=== PATIENT | female | born 1980 | race Caucasian/White ===

== ENCOUNTER 2016-07-24 20:21 | Observation (INO) ==
[2016-07-24 22:25] LABS: Basophils # 0.1 K/mcL (0.0-0.2); Basophils % 0.4 %; Hematocrit 44.1 % (35.3-44.9); Hemoglobin 14.8 g/dL (11.5-15.4); Immature Granulocytes % 0.4 % (0-4); Lymphocytes # 1.7 K/mcL (0.6-4.6); Lymphocytes % 8.3 %; Mean Corpuscular HGB Conc 33.6 g/dL (31.6-35.5); Mean Corpuscular Hemoglobin 29.9 pg (28.0-33.3); Mean Corpuscular Volume 89.1 fL (83.0-100.0); Mean Platelet Volume 9.7 fL (9.4-12.4); Neutrophils # 17.2 K/mcL (1.6-8.9); Platelet Count 317 K/mcL (140-400); Red Blood Count 4.95 M/mcL (3.82-4.97); Red Cell Distribution Width 13.5 % (11.5-14.5); Segmented Neutrophils % 85.9 %
[2016-07-24 22:37] LABS: Alanine Aminotransferase 17 Units/L (0-55); Albumin 3.9 g/dL (3.5-5.0); Albumin/Globulin Ratio 1.1 (1.1-2.2); Alkaline Phosphatase 137 Units/L (38-126); Amylase 36 Units/L (25-125); Aspartate Amino Transferase 18 Units/L (5-34); BUN/Creatinine Ratio 8 (6-26); Bilirubin,Direct 0.2 mg/dL (0.0-0.5); Bilirubin,Indirect 0.4 mg/dL (0.0-1.2); Bilirubin,Total 0.6 mg/dL (0.2-1.2); Blood Urea Nitrogen 5 mg/dL (7-20); Calcium 9.8 mg/dL (8.6-10.8); Carbon Dioxide 26 mEq/L (19-29); Chloride 102 mEq/L (98-109); Globulin 3.7 g/dL (2.4-3.5); Glucose 117 mg/dL (70-99); Lipase 14 Units/L (8-78); Osmolality,Calculated 282 (280-300); Potassium 4.1 mEq/L (3.5-4.5); Sodium 137 mEq/L (136-145); Total Protein 7.6 g/dL (6.0-8.3); eGFR For African Americans > 60 (> 60); eGFR For Non-African Americans > 60 (> 60)
[2016-07-24 23:14] LABS: Bilirubin,Urine Negative (Negative); Blood,Urine Negative (Negative); Clarity,Urine Cloudy (Clear); Color,Urine Yellow (Yellow); Glucose,Urine (UA) Normal (Normal); Ketones,Urine Negative (Negative); Leukocyte Esterase,Urine Negative (Negative); Nitrite,Urine Negative (Negative); PH,Urine 7.5 pH Units (5.0-8.0); Protein,Urine Negative (Neg-Trace); Urobilinogen,Urine Normal (Normal)
[2016-07-24 23:16] LABS: Bacteria,Urine Moderate per hpf (None-Few); Hyaline Casts,Urine None Seen per lpf (None-Few); Squamous Epithelial Cell,Urine Many per lpf (None-Few); WBC,Urine 0-3 per hpf (0-3)
[2016-07-24] MEDS ORDERED: 0.9 % Sodium Chloride 1,000 ML IVC ONE (23:22)
[2016-07-24] MEDS ORDERED: Ondansetron 4 MG/2 ML VIAL IVP ONE (23:31)
[2016-07-24] MEDS ORDERED: *HR* HYDROmorphone (PF) 1 MG/ML SYRINGE IVP ONE (23:32)
--- NOTE | 2016-07-24 23:35 | Emergency Department Note ---
Disposition Clinical Impression: Appendicitis Qualifiers: Appendicitis type: acute appendicitis Acute appendicitis type: unspecified acute appendicitis type Qualified Code(s): K35.80 - Unspecified acute appendicitis Disposition: Admitted As Inpatient Condition: Good Time of Disposition: 01:13 Abdominal Pain HPI - General Chief Complaint: ED Abdominal Pain Stated Complaint: lower right abdominal pain, fever nausea Time Seen by Provider: 07/24/16 23:13 Source: patient Nursing Notes Reviewed: Yes Vital Signs Reviewed: Yes - History of Present Illness Pt Subjective Complaint: abdominal pain Onset (ago): hour(s) Consistency: Worsening Location: periumbilical Pain Scale: 8 Quality: aching Radiation: none Migration to: RLQ Improves with: nothing Worsens with: movement Associated symptoms: Reports: nausea, vomiting, chills Treatments prior to arrival: none - Related Data Home Medications Medication Instructions Recorded Confirmed Alprazolam [Xanax 0.5 MG Tablet] 0.5 mg PO TID PRN 07/25/16 07/25/16 Buspirone HCl [Buspar] 10 mg PO TID PRN 07/25/16 07/25/16 Cyclobenzaprine [Flexeril] 10 mg PO BID PRN 07/25/16 07/25/16 Lisinopril-HCTZ 10-12.5 [Prinzide 1 each PO DAILY 07/25/16 07/25/16 10-12.5] Tramadol HCl [Ultram] 50 mg PO BID PRN 07/25/16 07/25/16 Allergies Allergy/AdvReac Type Severity Reaction Status Date / Time desvenlafaxine [From Pristiq] AdvReac Hives Verified 07/25/16 00:23 ibuprofen AdvReac Hives Verified 07/25/16 00:22 ketorolac [From Toradol] AdvReac Hives Verified 07/25/16 00:23 All systems ED: reviewed and negative except as stated. Constitutional: Denies: chills Cardiovascular: Denies: chest pain, palpitations, dyspnea on exertion Respiratory: Denies: dyspnea Gastrointestinal: Reports: as per HPI Genitourinary: Denies: dysuria, abnormal menses Musculoskeletal: Denies: back pain Integumentary: Denies: rash Neurological: Denies: headache Hematological/Lymphatic: Denies: easy bleeding Abdominal Pain PMH - Past Medical History Medical history: Reports: no medical history Female Surgical History: Reports: cholecystectomy, hysterectomy, orthopedic, other Psychiatric history: Reports: no psych history - Social History Smoking status: Current every day smoker Alcohol use: Reports: none Drug use: Reports: none Physical Exam - General Limitations: no limitations General appearance: alert, in no apparent distress - Head Head exam: normocephalic - Eye Eye exam: Present: EOMI. Absent: conjunctival injection - ENT ENT exam: mucous membranes moist - Neck Neck exam: Present: normal inspection, full ROM - Chest Chest inspection: Present: symmetric chest wall rise - Respiratory Respiratory exam: Present: normal lung sounds bilaterally. Absent: respiratory distress - Cardiovascular Cardiovascular exam: Present: regular rate, tachycardia - Abdominal Exam Abdominal exam: Present: soft, tenderness, guarding, obturator sign, tenderness at McBurney's Point Abdominal tenderness: Present: RLQ - Extremities Exam Extremities exam: Present: normal inspection, full ROM - Back Exam Back exam: Present: full ROM - Neurological Exam Neurological exam: Present: alert, oriented X3 - Psychiatric Psychiatric exam: Present: normal affect, normal mood - Skin Skin exam: Present: warm, dry, intact, normal color. Absent: rash, cyanosis, diaphoresis Course Course Narrative: Patient is a 36-year-old female Presents with abdominal pain that started acutely while she was at work approximately 10 hours ago. She states it started around her periumbilical region, then radiated to her right lower quadrant area and she has felt chills. Pain score is with movement. Patient seen and examined. She does have some focal tenderness over right lower quadrant, obturator test positive. Lab work was ordered upon her arrival to the exam room, she does have an elevated white blood cell count, patient is tachycardic. Analgesics and antiemetics and fluids ordered. Considering appendicitis. Discussed patient with Dr. RODRIGEZ, who agreed with CT scan - Reevaluation(s) Reevaluation #1: Results of CT scan show evidence for appendicitis. At this time patient's vitals are stable. Her pain is controlled. She is resting in bed. Discussed patient with Dr. Rodrigez, who also had FaceTime the patient, and agreed for admission and surgery consult. Time: 01:09 - Consultations Consultation #1: Surgery was paged, and discussed patient and results of CT scan with Dr. Banda, who advised to admit patient to his service, for surgery in the morning. Time: 01:14 Vital Signs Temperature 98.3 F 07/24/16 20:35 Pulse Rate 142 07/24/16 20:35 Respiratory Rate 14 07/24/16 20:35 Blood Pressure 142/93 07/24/16 20:35 O2 Sat by Pulse Oximetry 99 07/24/16 20:35 Temperature 97.8 F 07/25/16 02:20 Pulse Rate 103 07/25/16 02:20 Respiratory Rate 16 07/25/16 02:20 Blood Pressure 123/86 07/25/16 02:20 O2 Sat by Pulse Oximetry 95 07/25/16 02:20 Oxygen Delivery Oxygen Delivery Room Air Abdominal Pain - MDM Narrative Medical decision making narrative: Abdomen/Pelvis CT 07/25/16 00:02 IMPRESSION: Acute non perforated appendicitis. Appendix is dilated to 1.0 cm. There is appendiceal wall thickening. There is periappendiceal inflammatory change D/ / Gelacio Quintanilla MD / Gelacio Quintanilla MD Interpreting Provider: Gelacio Quintanilla MD All Lab Results (24 Hours) 07/24/16 07/24/16 07/24/16 Range/Units 22:09 22:09 23:00 WBC 20.0 H (4.3-11.1) K/mcL RBC 4.95 (3.82-4.97) M/mcL Hgb 14.8 (11.5-15.4) g/dL Hct 44.1 (35.3-44.9) % MCV 89.1 (83.0-100.0) fL MCH 29.9 (28.0-33.3) pg MCHC 33.6 (31.6-35.5) g/dL RDW 13.5 (11.5-14.5) % Plt Count 317 (140-400) K/mcL MPV 9.7 (9.4-12.4) fL Immature Gran % 0.4 (0-4) % Seg Neutrophils % 85.9 % Lymphocytes % 8.3 % Monocytes % 5.0 % Eosinophils % 0.0 % Basophils % 0.4 % Neutrophils # 17.2 H (1.6-8.9) K/mcL Lymphocytes # 1.7 (0.6-4.6) K/mcL Monocytes # 1.0 (0.0-1.3) K/mcL Eosinophils # 0.0 (0.0-0.6) K/mcL Basophils # 0.1 (0.0-0.2) K/mcL Sodium 137 (136-145) mEq/L Potassium 4.1 (3.5-4.5) mEq/L Chloride 102 (98-109) mEq/L Carbon Dioxide 26 (19-29) mEq/L BUN 5 L (7-20) mg/dL Creatinine 0.66 (0.57-1.11) mg/dL Est GFR ( Amer) > 60 (> 60) Est GFR (Non-Af Amer) > 60 (> 60) BUN/Creatinine Ratio 8 (6-26) Glucose 117 H (70-99) mg/dL Calculated Osmolality 282 (280-300) Lactic Acid (0.5-2.2) mmol/L Calcium 9.8 (8.6-10.8) mg/dL Total Bilirubin 0.6 (0.2-1.2) mg/dL Direct Bilirubin 0.2 (0.0-0.5) mg/dL Indirect Bilirubin 0.4 (0.0-1.2) mg/dL AST 18 (5-34) Units/L ALT 17 (0-55) Units/L Alkaline Phosphatase 137 H (38-126) Units/L Serum Total Protein 7.6 (6.0-8.3) g/dL Albumin 3.9 (3.5-5.0) g/dL Globulin 3.7 H (2.4-3.5) g/dL Albumin/Globulin Ratio 1.1 (1.1-2.2) Amylase 36 (25-125) Units/L Lipase 14 (8-78) Units/L Urine Color (Yellow) Urine Clarity (Clear) Urine pH (5.0-8.0) pH Units Ur Specific [place] (1.010-1.025) Urine Protein (Neg-Trace) mg/dL Urine Glucose (UA) (Normal) mg/dL Urine Ketones (Negative) mg/dL Urine Blood (Negative) Urine Nitrite (Negative) Urine Bilirubin (Negative) Urine Urobilinogen (Normal) mg/dL Ur Leukocyte Esterase (Negative) Urine Microscopic RBC (0-3) per hpf Urine Microscopic WBC (0-3) per hpf Ur Squamous Epith Cells (None-Few) per lpf Urine Bacteria (None-Few) per hpf Hyaline Casts (None-Few) per lpf Ur Culture Indicated? (NO) Urine Test Negative (Negative) 07/24/16 07/25/16 Range/Units 23:00 00:21 WBC (4.3-11.1) K/mcL RBC (3.82-4.97) M/mcL Hgb (11.5-15.4) g/dL Hct (35.3-44.9) % MCV (83.0-100.0) fL MCH (28.0-33.3) pg MCHC (31.6-35.5) g/dL RDW (11.5-14.5) % Plt Count (140-400) K/mcL MPV (9.4-12.4) fL Immature Gran % (0-4) % Seg Neutrophils % % Lymphocytes % % Monocytes % % Eosinophils % % Basophils % % Neutrophils # (1.6-8.9) K/mcL Lymphocytes # (0.6-4.6) K/mcL Monocytes # (0.0-1.3) K/mcL Eosinophils # (0.0-0.6) K/mcL Basophils # (0.0-0.2) K/mcL Sodium (136-145) mEq/L Potassium (3.5-4.5) mEq/L Chloride (98-109) mEq/L Carbon Dioxide (19-29) mEq/L BUN (7-20) mg/dL Creatinine (0.57-1.11) mg/dL Est GFR ( Amer) (> 60) Est GFR (Non-Af Amer) (> 60) BUN/Creatinine Ratio (6-26) Glucose (70-99) mg/dL Calculated Osmolality (280-300) Lactic Acid 1.0 (0.5-2.2) mmol/L Calcium (8.6-10.8) mg/dL Total Bilirubin (0.2-1.2) mg/dL Direct Bilirubin (0.0-0.5) mg/dL Indirect Bilirubin (0.0-1.2) mg/dL AST (5-34) Units/L ALT (0-55) Units/L Alkaline Phosphatase (38-126) Units/L Serum Total Protein (6.0-8.3) g/dL Albumin (3.5-5.0) g/dL Globulin (2.4-3.5) g/dL Albumin/Globulin Ratio (1.1-2.2) Amylase (25-125) Units/L Lipase (8-78) Units/L Urine Color Yellow (Yellow) Urine Clarity Cloudy A (Clear) Urine pH 7.5 (5.0-8.0) pH Units Ur Specific [place] 1.020 (1.010-1.025) Urine Protein Negative (Neg-Trace) mg/dL Urine Glucose (UA) Normal (Normal) mg/dL Urine Ketones Negative (Negative) mg/dL Urine Blood Negative (Negative) Urine Nitrite Negative (Negative) Urine Bilirubin Negative (Negative) Urine Urobilinogen Normal (Normal) mg/dL Ur Leukocyte Esterase Negative (Negative) Urine Microscopic RBC 5-15 H (0-3) per hpf Urine Microscopic WBC 0-3 (0-3) per hpf Ur Squamous Epith Cells Many H (None-Few) per lpf Urine Bacteria Moderate H (None-Few) per hpf Hyaline Casts None Seen (None-Few) per lpf Ur Culture Indicated? NO (NO) Urine Test (Negative) - Lab Data Lab results reviewed: Yes I reviewed the patient's lab results. Result diagrams: 07/24/16 22:09 07/24/16 22:09 Lab Results 07/24/16 07/24/16 07/24/16 Range/Units 22:09 22:09 23:00 WBC 20.0 H (4.3-11.1) K/mcL RBC 4.95 (3.82-4.97) M/mcL Hgb 14.8 (11.5-15.4) g/dL Hct 44.1 (35.3-44.9) % MCV 89.1 (83.0-100.0) fL MCH 29.9 (28.0-33.3) pg MCHC 33.6 (31.6-35.5) g/dL RDW 13.5 (11.5-14.5) % Plt Count 317 (140-400) K/mcL MPV 9.7 (9.4-12.4) fL Immature Gran % 0.4 (0-4) % Seg Neutrophils % 85.9 % Lymphocytes % 8.3 % Monocytes % 5.0 % Eosinophils % 0.0 % Basophils % 0.4 % Neutrophils # 17.2 H (1.6-8.9) K/mcL Lymphocytes # 1.7 (0.6-4.6) K/mcL Monocytes # 1.0 (0.0-1.3) K/mcL Eosinophils # 0.0 (0.0-0.6) K/mcL Basophils # 0.1 (0.0-0.2) K/mcL Sodium 137 (136-145) mEq/L Potassium 4.1 (3.5-4.5) mEq/L Chloride 102 (98-109) mEq/L Carbon Dioxide 26 (19-29) mEq/L BUN 5 L (7-20) mg/dL Creatinine 0.66 (0.57-1.11) mg/dL Est GFR ( Amer) > 60 (> 60) Est GFR (Non-Af Amer) > 60 (> 60) BUN/Creatinine Ratio 8 (6-26) Glucose 117 H (70-99) mg/dL Calculated Osmolality 282 (280-300) Lactic Acid (0.5-2.2) mmol/L Calcium 9.8 (8.6-10.8) mg/dL Total Bilirubin 0.6 (0.2-1.2) mg/dL Direct Bilirubin 0.2 (0.0-0.5) mg/dL Indirect Bilirubin 0.4 (0.0-1.2) mg/dL AST 18 (5-34) Units/L ALT 17 (0-55) Units/L Alkaline Phosphatase 137 H (38-126) Units/L Serum Total Protein 7.6 (6.0-8.3) g/dL Albumin 3.9 (3.5-5.0) g/dL Globulin 3.7 H (2.4-3.5) g/dL Albumin/Globulin Ratio 1.1 (1.1-2.2) Amylase 36 (25-125) Units/L Lipase 14 (8-78) Units/L Urine Color (Yellow) Urine Clarity (Clear) Urine pH (5.0-8.0) pH Units Ur Specific [place] (1.010-1.025) Urine Protein (Neg-Trace) mg/dL Urine Glucose (UA) (Normal) mg/dL Urine Ketones (Negative) mg/dL Urine Blood (Negative) Urine Nitrite (Negative) Urine Bilirubin (Negative) Urine Urobilinogen (Normal) mg/dL Ur Leukocyte Esterase (Negative) Urine Microscopic RBC (0-3) per hpf Urine Microscopic WBC (0-3) per hpf Ur Squamous Epith Cells (None-Few) per lpf Urine Bacteria (None-Few) per hpf Hyaline Casts (None-Few) per lpf Ur Culture Indicated? (NO) Urine Test Negative (Negative) 07/24/16 07/25/16 Range/Units 23:00 00:21 WBC (4.3-11.1) K/mcL RBC (3.82-4.97) M/mcL Hgb (11.5-15.4) g/dL Hct (35.3-44.9) % MCV (83.0-100.0) fL MCH (28.0-33.3) pg MCHC (31.6-35.5) g/dL RDW (11.5-14.5) % Plt Count (140-400) K/mcL MPV (9.4-12.4) fL Immature Gran % (0-4) % Seg Neutrophils % % Lymphocytes % % Monocytes % % Eosinophils % % Basophils % % Neutrophils # (1.6-8.9) K/mcL Lymphocytes # (0.6-4.6) K/mcL Monocytes # (0.0-1.3) K/mcL Eosinophils # (0.0-0.6) K/mcL Basophils # (0.0-0.2) K/mcL Sodium (136-145) mEq/L Potassium (3.5-4.5) mEq/L Chloride (98-109) mEq/L Carbon Dioxide (19-29) mEq/L BUN (7-20) mg/dL Creatinine (0.57-1.11) mg/dL Est GFR ( Amer) (> 60) Est GFR (Non-Af Amer) (> 60) BUN/Creatinine Ratio (6-26) Glucose (70-99) mg/dL Calculated Osmolality (280-300) Lactic Acid 1.0 (0.5-2.2) mmol/L Calcium (8.6-10.8) mg/dL Total Bilirubin (0.2-1.2) mg/dL Direct Bilirubin (0.0-0.5) mg/dL Indirect Bilirubin (0.0-1.2) mg/dL AST (5-34) Units/L ALT (0-55) Units/L Alkaline Phosphatase (38-126) Units/L Serum Total Protein (6.0-8.3) g/dL Albumin (3.5-5.0) g/dL Globulin (2.4-3.5) g/dL Albumin/Globulin Ratio (1.1-2.2) Amylase (25-125) Units/L Lipase (8-78) Units/L Urine Color Yellow (Yellow) Urine Clarity Cloudy A (Clear) Urine pH 7.5 (5.0-8.0) pH Units Ur Specific [place] 1.020 (1.010-1.025) Urine Protein Negative (Neg-Trace) mg/dL Urine Glucose (UA) Normal (Normal) mg/dL Urine Ketones Negative (Negative) mg/dL Urine Blood Negative (Negative) Urine Nitrite Negative (Negative) Urine Bilirubin Negative (Negative) Urine Urobilinogen Normal (Normal) mg/dL Ur Leukocyte Esterase Negative (Negative) Urine Microscopic RBC 5-15 H (0-3) per hpf Urine Microscopic WBC 0-3 (0-3) per hpf Ur Squamous Epith Cells Many H (None-Few) per lpf Urine Bacteria Moderate H (None-Few) per hpf Hyaline Casts None Seen (None-Few) per lpf Ur Culture Indicated? NO (NO) Urine Test (Negative) - Radiology Data Radiology results reviewed: Yes I reviewed the patient's radiology results. Attestation Statement - Attestation Attestation: I performed a history and physical examination of the patient and discussed their management with the PA. I reviewed the residents note and agree with the documented findings and plan of care. This is a 36-year-old female who presented with pain in the right lower quadrant area. Her CT scan did suggest evidence of appendicitis. Tenderness did localize. Case discussed with general surgery to arrange for admission.
[2016-07-25] MEDS ORDERED: 0.9 % Sodium Chloride 1,000 ML IVC ONE ×2 (01:16→13:54)
[2016-07-25] MEDS ORDERED: *HR* HYDROmorphone (PF) 1 MG/ML SYRINGE IVP ONE (01:29)
[2016-07-25] MEDS ORDERED: Ondansetron 4 MG/2 ML VIAL IVP ONE ×2 (01:29→12:51)
[2016-07-25] MEDS ORDERED: cefOXitin 2,000 MG in D5% in Water (Mini-Bag+) 100 ML IVPB ONE (02:28)
[2016-07-25] MEDS ORDERED: Ondansetron 4 MG/2 ML VIAL IVP PRN ×3 (02:29→13:54)
[2016-07-25] MEDS ORDERED: 0.9 % Sodium Chloride 1,000 ML IVC SCH ×2 (02:30→13:54)
[2016-07-25] MEDS: *HR* HYDROmorphone (PF) 1 MG/ML SYRINGE IVP PRN ×2 (03:30→07:07)
--- NOTE | 2016-07-25 10:25 | Anesthesia Evaluation PreOp ---
Date of Encounter: 07/25/16 Time of Encounter: 10:37 - Past History Planned Operation: Lap appendectomy Cardiac History: Denies any Significant Hx Pulmonary History: Smoker, Pack/yr (1ppd x years) MEDICAL DOCTOR MD History: Denies Any Significant HX Other Medical History: Denies Any Significant HX Anesthesia History: No Prior Anesthetic Complications, Past Anesthesia (MIGUEL, tanner, ortho) Alcohol Use: none Drug use: none Medications and Allergies Alprazolam [Xanax 0.5 MG Tablet] 0.5 mg PO QID PRN 07/25/16 [History] Beclomethasone Diprop 40mcg [Qvar 40 mcg] 1 puff IH BID 07/25/16 [History] Buspirone HCl [Buspar] 10 mg PO TID PRN 07/25/16 [History] Cyclobenzaprine [Flexeril] 10 mg PO TID PRN 07/25/16 [History] Lisinopril-HCTZ 10-12.5 [Prinzide 10-12.5] 1 tab PO DAILY 07/25/16 [History] Montelukast [Singulair] 10 mg PO HS 07/25/16 [History] Tramadol HCl [Ultram] 50 mg PO Q6H PRN 07/25/16 [History] Allergies desvenlafaxine [From Pristiq] Adverse Reaction (Verified 07/25/16 00:23) Hives ibuprofen Adverse Reaction (Verified 07/25/16 00:22) Hives ketorolac [From Toradol] Adverse Reaction (Verified 07/25/16 00:23) Hives - Meds/Allergy Pre-op Review Medications Reviewed: Yes Allergies Reviewed: Yes Beta Blockers on Current Med List: No Anesthesia Results - Labs 07/24/16 22:09 07/24/16 22:09 - Imaging Additional studies: CT abdomen shows acute appendicitis Anesthesia Exam Selected Entries 07/25/16 07:57 Temperature 98.2 F Pulse Rate 109 Respiratory Rate 20 Blood Pressure 106/73 O2 Sat by Pulse Oximetry 97 Weight: 86kg NPO (# of Hours): >8 - HEENT Pupil (Motor): EOMI Mallampati: III Teeth: Edentulous (has on front upper tooth only) Oral Opening: Less than or equal to 3 - MEDICAL DOCTOR MD LOC: Oriented MEDICAL DOCTOR MD Motor: Normal RUE, Normal LUE, Normal RLE, Normal LLE, Normal Face MEDICAL DOCTOR MD Sensory: Normal: RUE, LUE, RLE, LLE, Face - Cardiac Rhythm: Regular (tachy) Murmur: None - Pulmonary Breath Sounds: bilateral Clear Respiratory Effort: Symmetrical Anesthesia Assess/Plan ASA Score: 2 Modified [place] Scale for Level of Consciousness: Cooperative, oriented, and tranquil Anesthetic Plan: General Monitoring Plan: Standard Monitors Recovery Plan: PACU (Discussed risks of GA, questions answered and agrees to proceed.)
[2016-07-25] MEDS ORDERED: *HR* Propofol 200 MG/20 ML VIAL IVP ONE (10:37)
[2016-07-25] MEDS ORDERED: *HR* Midazolam HCl 2 MG/2 ML VIAL ONE (10:37)
[2016-07-25] MEDS ORDERED: *HR* FentaNYL (PF) 100 MCG/2 ML VIAL ONE (10:37)
[2016-07-25] MEDS ORDERED: Lidocaine -MPF 2% 2 ML VIAL ONE (10:39)
[2016-07-25] MEDS ORDERED: Lidocaine -MPF 4% 5 ML AMPUL ONE (10:41)
[2016-07-25] MEDS ORDERED: *HR* HYDROmorphone (PF) 1 MG/ML SYRINGE IVP PRN ×3 (10:47→13:54)
--- NOTE | 2016-07-25 11:38 | General Surg History&Physical ---
Date of Encounter: 07/25/16 Time of Encounter: 11:36 Assessment and Plan (1) Appendicitis Current Visit: Yes Status: Acute The assessment and plan as outlined above was discussed with the patient and/or family members who expressed understanding and agreement. All questions were answered. Plan for laparoscopic appendectomy. Risks, benefits, and expected outcomes explained to the patient she agrees to proceed. Qualifiers: Appendicitis type: acute appendicitis Acute appendicitis type: unspecified acute appendicitis type Qualified Code(s): K35.80 - Unspecified acute appendicitis History of Present Illness HPI: Ms. Keen is a 36 year old female with RLQ pain since yesterday morning. the pain became progressively worse throughout the day. Patient minutes the pain is sharp in nature. No radiating symptoms. She currently does not have an appetite. She is undergone a partial hysterectomy in the past. Past Med Surg Social Fam HX - Past Medical History Medical history: no medical history Psychiatric history: no psych history - Past Surgical History Surgical History: cholecystectomy, hysterectomy - Social History Smoking Status: Current every day smoker Packs per day: 0.5 Smokeless Tobacco Status: No Alcohol use: none Drug use: none - Family History Grandmother Living Status: Cause of : Stroke Medications and Allergies Alprazolam [Xanax 0.5 MG Tablet] 0.5 mg PO QID PRN 07/25/16 [History] Beclomethasone Diprop 40mcg [Qvar 40 mcg] 1 puff IH BID 07/25/16 [History] Buspirone HCl [Buspar] 10 mg PO TID PRN 07/25/16 [History] Cyclobenzaprine [Flexeril] 10 mg PO TID PRN 07/25/16 [History] Lisinopril-HCTZ 10-12.5 [Prinzide 10-12.5] 1 tab PO DAILY 07/25/16 [History] Montelukast [Singulair] 10 mg PO HS 07/25/16 [History] Tramadol HCl [Ultram] 50 mg PO Q6H PRN 07/25/16 [History] Allergies desvenlafaxine [From Pristiq] Adverse Reaction (Verified 07/25/16 00:23) Hives ibuprofen Adverse Reaction (Verified 07/25/16 00:22) Hives ketorolac [From Toradol] Adverse Reaction (Verified 07/25/16 00:23) Hives Review of Systems All systems PM: A 10-system review of systems was performed and is negative for pertinent findings except as documented above in the HPI. General Surgery Exam Initial Vital Signs Temp Pulse Resp BP Pulse Ox 98.3 F 142 14 142/93 99 07/24/16 20:35 07/24/16 20:35 07/24/16 20:35 07/24/16 20:35 07/24/16 20:35 - Neck no bruits, trachea midline - Respiratory normal respiratory effort - Cardiovascular Cardiovascular exam: Present: NR - Abdomen Abdomen general surgery: Present: tender Abdominal Tenderness: Present: RLQ - Integumentary Integumentary general surgery: Present: warm and dry, no abnormal pigmentation - Musculoskeletal Present: normal gait, normal posture Results - Labs 07/24/16 22:09 07/24/16 22:09 Abnormal lab results WBC 20.0 K/mcL (4.3-11.1) H 07/24/16 22:09 Neutrophils # 17.2 K/mcL (1.6-8.9) H 07/24/16 22:09 BUN 5 mg/dL (7-20) L 07/24/16 22:09 Glucose 117 mg/dL (70-99) H 07/24/16 22:09 POC Glucose 97 (58-89) H 07/25/16 05:51 Alkaline Phosphatase 137 Units/L (38-126) H 07/24/16 22:09 Globulin 3.7 g/dL (2.4-3.5) H 07/24/16 22:09 Urine Clarity Cloudy (Clear) A 07/24/16 23:00 Urine Microscopic RBC 5-15 per hpf (0-3) H 07/24/16 23:00 Ur Squamous Epith Cells Many per lpf (None-Few) H 07/24/16 23:00 Urine Bacteria Moderate per hpf (None-Few) H 07/24/16 23:00 All other labs normal.
--- NOTE | 2016-07-25 12:16 | Operative Note ---
Date of procedure: 07/25/16 Pre-op diagnosis: Appendicitis Post-op diagnosis: same Procedure: Laparoscopic appendectomy Anesthesia: SAQIB Surgeon: Adelfo Banda Estimated blood loss (cc): 5 Specimen: appendix Condition: stable Disposition: same day Procedure in Detail: After informed consent, patient was taken to the operating room placed in supine position. After adequate sedation anesthesia the abdomen was prepped and draped. A 12 mm cannula was placed in the umbilicus. A 5 mm cannulas placed in suprapubic region and the left lower quadrant. Camera was inserted and the abdomen after a pneumoperitoneum. 2 Dalila graspers were used to identify the base of the appendix. A appendiceal window was created. A RAJIV endoscopic stapler was placed across the base. A vascular load was placed across the mesoappendix. Once the appendix was was placed in an Endobag and removed through the umbilicus. The right lower quadrant was suctioned dry no bleeding was identified. Remainder the pneumoperitoneum was evacuated. The umbilicus was closed with an 0 Vicryl suture in [id number] fashion. Skin was closed with 4-0 Vicryl suture and Dermabond.
[2016-07-25] MEDS ORDERED: Ringers Solution, Lactated 1,000 ML ONE (13:03)
--- NOTE | 2016-07-25 13:30 | Anesthesia Evaluation Post Op ---
Date of Encounter: 07/25/16 Time of Encounter: 13:29 - Vital Signs Vital Signs: Vital Signs/O2 Sat, Most Current Temp Pulse Resp BP Pulse Ox 99.7 F H 102 16 118/83 97 07/25/16 13:21 07/25/16 13:21 07/25/16 13:21 07/25/16 13:21 07/25/16 13:21 - Lungs Lungs: Clear Ascult./Percussion - Airway Airway: Non-obstructed - Cardiovascular Regular Rate - Mental Status Mental Status: Alert & Oriented, Answers Appropriately - Pain Pain Scale: 0 Pain Scale used: Numeric (1 - 10) - Nausea Vomiting Nausea Vomiting: Not Present - Hydration Hydration: Ice chips, Has not voided - Discharge PostOp Status: Transfer Patient to floor
[2016-07-25] MEDS ORDERED: *HR* OxyCODONE/APAP 5/325 TABLET PO PRN (13:54)
--- NOTE | 2016-07-25 14:28 | Discharge Summary ---
Date of Encounter: 07/25/16 Time of Encounter: 14:26 - Discharge Diagnosis (1) Appendicitis Priority: Primary Status: Resolved Qualifiers: Appendicitis type: acute appendicitis Acute appendicitis type: unspecified acute appendicitis type Qualified Code(s): K35.80 - Unspecified acute appendicitis - Discharge Medications Prescriptions: OxyCODONE/APAP 5/325 [Percocet 5/325 MG] 1 each PO Q6HR PRN #30 tablet PRN Reason: Pain Docusate [Colace] 100 mg PO BID #30 capsule Home Medications: Alprazolam [Xanax 0.5 MG Tablet] 0.5 mg PO QID PRN 07/25/16 [History] Beclomethasone Diprop 40mcg [QVAR 40 mcg] 1 puff IH BID 07/25/16 [History] Buspirone HCl [Buspar] 10 mg PO TID PRN 07/25/16 [History] Cyclobenzaprine [Flexeril] 10 mg PO TID PRN 07/25/16 [History] Docusate [Colace] 100 mg PO BID #30 capsule 07/25/16 [Rx] Lisinopril-HCTZ 10-12.5 [Prinzide 10-12.5] 1 tab PO DAILY 07/25/16 [History] Montelukast [Singulair] 10 mg PO HS 07/25/16 [History] OxyCODONE/APAP 5/325 [Percocet 5/325 MG] 1 each PO Q6HR PRN #30 tablet 07/25/16 [Rx] Tramadol HCl [Ultram] 50 mg PO Q6H PRN 07/25/16 [History] Allergies/Adverse Reactions: Allergies desvenlafaxine [From Pristiq] Adverse Reaction (Verified 07/25/16 00:23) Hives ibuprofen Adverse Reaction (Verified 07/25/16 00:22) Hives ketorolac [From Toradol] Adverse Reaction (Verified 07/25/16 00:23) Hives General Surgery Exam Initial Vital Signs Temp Pulse Resp BP Pulse Ox 98.3 F 142 14 142/93 99 07/24/16 20:35 07/24/16 20:35 07/24/16 20:35 07/24/16 20:35 07/24/16 20:35 - General physical appearance well developed, well nourished, no distress - Eyes normal ocular movement - ENT normal mucosa, atraumatic, normocephalic - Neck trachea midline - Respiratory normal respiratory effort, clear to auscultation - Cardiovascular Cardiovascular exam: Present: RRR - Abdomen Abdomen general surgery: Present: bowel sounds present, soft, tender (Expected postoperative tenderness) - Incision Incision: Present: clean and dry, intact - Integumentary Integumentary general surgery: Present: warm and dry - Neurologic Present: CN 2-12 grossly intact - Musculoskeletal Present: normal gait, normal posture - Psychiatric Psychiatric general surgery: Present: appropriate, oriented to person, oriented to place, oriented to time, speech is normal, memory intact Date of admission: 07/25/16 01:19 Primary care physician: Marcia Dykes Discharging clinician: Adelfo Banda (Leydi Donahue) Anticipated date of discharge: 07/25/16 - Patient Status Disposition: Home, Self-Care Condition: Good Functional capacity at discharge: independent ambulation Overall status at discharge: patient is progressing back to baseline - Discharge Instructions Follow Up With: Marcia Dykes MD [Primary Care Provider] - Charisse Donahue CNP [Advanced Practice Nurse] - 08/05/16 9:00 am (surgery follow-up) Forms: ED Satisfaction Letter, Work/School Release Additional Instructions: #1 may shower, no tub bath for 2 weeks #2 wash incisions with soap and water and pat dry daily #3 no lifting, pushing, pulling more than 15 pounds for the next 2 weeks #4 no driving until off narcotics for 24 hours and able to safely react in the car #5 may climb stairs - Diet and Activity Activity: other (See additional instructions about) Diet: advance to your usual diet - Hospital Course Hospital course: Ms. Keen is a 36 year old female presented to the emergency department with complaints of right lower quadrant abdominal pain. She was found to have acute appendicitis and was taken to the operating room for laparoscopic appendectomy with Dr. Banda. We will begin discharge planning to home when patient meets discharge criteria including tolerating liquids without nausea or vomiting, vital signs are stable and afebrile, voiding and ambulating without difficulty, pain well controlled. We will plan for outpatient follow-up in the next 10-14 days. - Time Spent with Patient Total time spent providing and/or coordinating discharge services: Less than 30 minutes Labs on day of discharge: Labs from last 24 hours 07/25/16 05:51 POC Glucose 97 H
[2016-07-25 17:24] VITALS: BP 100/70
== END 2016-07-25 17:02 | disposition home or self-care (01) ==
LOC: 3ANU 20:21 → EMEROO 20:21 → 3ANU 07-25 01:50
PROVIDERS: ADMIT Surgery; ATTEND Surgery